=== PATIENT | male | born 1995 | race Caucasian/White ===

== ENCOUNTER → 2017-03-28 | Outpatient (CLI) | payer BC, OTHER ==
[~2017-03-28] MED LIST: ALBU17AE3 IH; CEFD300C3 PO; FEXO-14 PO; HYDR-3714 PO
--- NOTE | 2017-03-28 09:37 | Diagnostic Imaging Report ---
PROCEDURE: MR imaging cervical spine without contrast. TECHNIQUE: Multiplanar, multisequence MR imaging of the cervical spine was performed without contrast. INDICATION: Pain and resolved palpable lump and knot. Exam interpreted in correlation with soft tissue neck CT dated 12/20/2013. That exam included reconstructions. 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 No acute or suspicious bony abnormality is found. No extrinsic mass effect upon the thecal sac. The neural foramina are widely patent throughout. No focal disc herniation. No evidence for ligamentous injury. No paravertebral mass, hemorrhage, or fluid collection. A surface marker posteriorly right of midline at the upper thoracic levels reveals no mass, fluid collection, or muscular asymmetry. IMPRESSION: Normal cord. No stenosis. No acute pathology. 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 No mass, fluid collection, or abnormality in the region of palpable complaint. Cervical spinal cord itself has a normal volume, normal morphology, and normal signal intensity. Dictated by: Dictated on workstation # [id number]
== END ==
LOC: RAD 08:43
PROVIDERS: ATTEND Orthopaedic Surgery
DX: Q76.49 Other congenital malformations of spine, not associated with scoliosis (principal)
CPT/HCPCS: 72141